=== PATIENT | female | born 1990 | race Caucasian/White ===

== ENCOUNTER 2018-01-16 04:21 | Emergency (ER) | payer OTHER ==
[~2018-01-16] VITALS: Ht 167.6 cm; Wt 68.0 kg
[~2018-01-16 04:21] MED LIST: AMOX1TAB12 PO; IMODIUM A-D2 MG PO; PEPCID40 MG PO; PHENERGAN25 MG PO; TUSSI PRES-B L120 M1 PO
== END 2018-01-16 17:49 | disposition home or self-care (01) ==
LOC: ER 04:21
DX: K29.70 Gastritis, unspecified, without bleeding (principal)

== ENCOUNTER 2018-03-26 10:12 | Outpatient (CLI) | payer OTHER | END 2018-03-26 10:18 | disposition home or self-care (01) | LOC: SONOGRAMA 10:12 | DX: E03.8 Other specified hypothyroidism (principal) ==

== ENCOUNTER 2018-05-30 02:40 | Emergency (ER) | payer OTHER ==
[~2018-05-30] VITALS: Ht 167.6 cm; Wt 68.0 kg
[2018-05-30] MEDS ORDERED: KETO10TA2 PO (07:40)
[2018-05-30] MEDS ORDERED: NORFLEX100MG PO (07:40)
== END 2018-05-30 08:01 | disposition home or self-care (01) ==
LOC: ER 02:40
DX: R51 Headache (principal)

== ENCOUNTER 2018-12-18 23:08 | Emergency (ER) | payer OTHER ==
[~2018-12-18] VITALS: Ht 167.6 cm; Wt 68.0 kg
[~2018-12-18 23:08] MED LIST changes: +KETO10TA2 PO; +NORFLEX100MG PO
[2018-12-19] MEDS ORDERED: ZYNCOF 20-400120 ML PO (02:58)
[2018-12-19] MEDS ORDERED: CEFUROXIME500 MG PO (02:58)
[2018-12-19] MEDS ORDERED: ZYRTEC10 M2 PO (02:58)
== END 2018-12-19 03:09 | disposition home or self-care (01) ==
LOC: ER 23:08
DX: N39.0 Urinary tract infection, site not specified (principal); J06.9 Acute upper respiratory infection, unspecified

== ENCOUNTER 2019-01-10 13:04 | Emergency (ER) | payer OTHER ==
[~2019-01-10] VITALS: Ht 167.6 cm; Wt 68.0 kg
[~2019-01-10 13:04] MED LIST changes: +CEFUROXIME500 MG PO; +ZYNCOF 20-400120 ML PO; +ZYRTEC10 M2 PO
== END 2019-01-10 18:09 | disposition home or self-care (01) ==
LOC: ER 13:04
DX: J03.90 Acute tonsillitis, unspecified (principal); B34.9 Viral infection, unspecified